=== PATIENT | female | born 1995 | race African-American/Black ===

== ENCOUNTER 2020-06-30 14:07 | Emergency (ER) | payer MEDICAID ==
[~2020-06-30] VITALS: Ht 165.1 cm; Wt 90.7 kg
[~2020-06-30 14:07] MED LIST: AMOX500C2 PO; BENZ56AE TP; CODE-54 PO; DCS100C PO; FRS325T PO; IBP600T1 PO; NAPR-243 PO; PREN1TAB71 PO
[2020-06-30 14:54] LABS: BASOPHILS % (AUTO) 0 % (0-10); EOSINOPHILS # (AUTO) 0.1 10^3/uL (0.0-0.3); EOSINOPHILS % (AUTO) 1 % (0-10); HEMATOCRIT 43 % (35-52); HEMOGLOBIN 14.1 G/DL (11.5-16.0); LYMPHOCYTES # (AUTO) 1.9 X 10^3 (1.0-4.0); LYMPHOCYTES % (AUTO) 22 % (12-44); MEAN CORPUSCULAR HEMOGLOBIN 28 PG (25-34); MEAN CORPUSCULAR HGB CONC 33 G/DL (32-36); MEAN CORPUSCULAR VOLUME 83 FL (80-99); MEAN PLATELET VOLUME 9.8 FL (7.4-10.4); MONOCYTES # (AUTO) 0.9 X 10^3 (0.0-1.0); MONOCYTES % (AUTO) 10 % (0-12); NEUTROPHILS # (AUTO) 5.9 X 10^3 (1.8-7.8); NEUTROPHILS % (AUTO) 67 % (42-75); PLATELET COUNT 265 10^3/uL (130-400); WHITE BLOOD COUNT 8.9 10^3/uL (4.3-11.0)
--- NOTE | 2020-06-30 15:57 | ED GU-Female ---
General Chief Complaint: Female Reproductive Stated Complaint: 10 WKS PREG - VAG BLEEDING Nursing Triage Note: Pt reports brown spotting yesterday. Pt reports heavy bleeding began today. Pt has soaked through two pads in the last hour. Pt reports clots larger than a quarter. Pt reports having an ultrasound last week with no heartbeat. Pt c/o cramping. Nursing Sepsis Screen: No Definite Risk Source: patient Exam Limitations: no limitations History of Present Illness Date Seen by Provider: Jun 30, 2020 Time Seen by Provider: 14:13 Initial Comments This 24-year-old young lady at approximately 10 weeks gestational age presents to the emergency room with complaints of mild cramping and heavy vaginal bleeding. This started last night with some brownish discharge. Has escalated over the last couple of hours. She has gone through 2 pads in the last hour. She denies any significant pain, fever, or other complaints. She reports intrauterine was confirmed at the [facility] on Jun 26. Dr. STAHL is her primary gore seamer. Blood type is A pos. Allergies and Home Medications Allergies Coded Allergies: No Known Drug Allergies (Unverified , 08/29/12) Home Medications Amoxicillin 500 Mg Capsule, 500 MG PO TID Prescribed by: ISRAEL HAMMOND MD on 12/21/15 1128 Patient Home Medication List Home Medication List Reviewed: Yes Review of Systems Review of Systems Constitutional: no symptoms reported EENTM: no symptoms reported Respiratory: no symptoms reported Cardiovascular: no symptoms reported Gastrointestinal: no symptoms reported Genitourinary: see HPI Musculoskeletal: no symptoms reported Skin: no symptoms reported Psychiatric/Neurological: No Symptoms Reported Endocrine: No Symptoms Reported Hematologic/Lymphatic: No Symptoms Reported Past Ewtrada-Xplsvw-Fusfha Hx Past Med/Social Hx: Reviewed Nursing Past Med/Soc Hx Patient Social History Alcohol Use: Denies Use Recreational Drug Use: No 2nd Hand Smoke Exposure: No Recent Foreign Travel: No Contact w/Someone Who Travel: No Recent Infectious Disease Expo: No Physical Abuse: No Sexual Abuse: No Mistreated: No Fear: No Immunizations Up To Date Tetanus Booster (TDap): Unknown PED Vaccines UTD: Yes Date of Influenza Vaccine: Jul 12, 2014 Seasonal Allergies Seasonal Allergies: Yes Past Medical History Surgeries: No Respiratory: No Cardiac: No Neurological: No Reproductive Disorders: No Gastrointestinal: No Musculoskeletal: No Endocrine: No Cancer: No Psychosocial: No Integumentary: Yes (occas eczema hx) Eczema Blood Disorders: No Family Medical History Hypertension 19 FATHER Physical Exam Vital Signs Vital Signs - First Documented 06/30/20 14:26 Temp 36.7 Pulse 69 Resp 20 B/P (MAP) 111/77 (88) Pulse Ox 99 O2 Delivery Room Air Capillary Refill : Less Than 3 Seconds Height, Weight, BMI Height: 5'5.00" Weight: 164lbs. 2.0oz. [id number]; 33.00 BMI Method:Estimated General Appearance: WD/WN, no apparent distress HEENT: PERRL/EOMI, normal ENT inspection Cardiovascular: regular rate, rhythm, no edema, no murmur Respiratory: lungs clear, normal breath sounds, no respiratory distress Gastrointestinal: normal bowel sounds, non tender, soft Extremities: normal inspection, no pedal edema Neurologic/Psychiatric: head of marketing adometry II-XII nml as tested, no motor/sensory deficits, alert, normal mood/affect, oriented x 3 Skin: normal color, warm/dry Progress/Results/Core Measures Suspected Sepsis Recent Fever Within 48 Hours: No Infection Criteria Present: None New/Unexplained Altered Menta: No Sepsis Screen: No Definite Risk SIRS Temperature: Pulse: 69 Respiratory Rate: 20 Laboratory Tests 06/30/20 14:34: White Blood Count 8.9 Blood Pressure 111 /77 Mean: 88 Laboratory Tests 06/30/20 14:34: Platelet Count 265 Results/Orders Lab Results Laboratory Tests Test 06/30/20 14:34 06/30/20 15:45 Range/Units White Blood Count 8.9 4.3-11.0 10^3/uL Red Blood Count 5.11 4.35-5.85 10^6/uL Hemoglobin 14.1 11.5-16.0 G/DL Hematocrit 43 35-52 % Mean Corpuscular Volume 83 80-99 FL Mean Corpuscular Hemoglobin 28 25-34 PG Mean Corpuscular Hemoglobin Concent 33 32-36 G/DL Red Cell Distribution Width 12.7 10.0-14.5 % Platelet Count 265 130-400 10^3/uL Mean Platelet Volume 9.8 7.4-10.4 FL Neutrophils (%) (Auto) 67 42-75 % Lymphocytes (%) (Auto) 22 12-44 % Monocytes (%) (Auto) 10 0-12 % Eosinophils (%) (Auto) 1 0-10 % Basophils (%) (Auto) 0 0-10 % Neutrophils # (Auto) 5.9 1.8-7.8 X 10^3 Lymphocytes # (Auto) 1.9 1.0-4.0 X 10^3 Monocytes # (Auto) 0.9 0.0-1.0 X 10^3 Eosinophils # (Auto) 0.1 0.0-0.3 10^3/uL Basophils # (Auto) 0.0 0.0-0.1 10^3/uL Human Chorionic Gonadotropin, Quant 12038 H <5 MIU/ML Urine Color YELLOW Urine Clarity CLOUDY Urine pH 8.0 5-9 Urine Specific [place] 1.015 L 1.016-1.022 Urine Protein TRACE H NEGATIVE Urine Glucose (UA) NEGATIVE NEGATIVE Urine Ketones TRACE H NEGATIVE Urine Nitrite NEGATIVE NEGATIVE Urine Bilirubin NEGATIVE NEGATIVE Urine Urobilinogen 2.0 < = 1.0 MG/DL Urine Leukocyte Esterase NEGATIVE NEGATIVE Urine RBC (Auto) 3+ H NEGATIVE Urine RBC 50-100 H /HPF Urine WBC 10-25 H /HPF Urine Squamous Epithelial Cells 2-5 /HPF Urine Crystals NONE /LPF Urine Amorphous Sediment MOD BREANNA PHOSPHATE H /LPF Urine Bacteria FEW H /HPF Urine Casts NONE /LPF Urine Mucus NEGATIVE /LPF Urine Culture Indicated YES My Orders Orders - FLORENTINO LEMUS MD Cbc With Automated Diff (06/30/20 14:13) Hcg,Quantitative (06/30/20 14:13) Ua Culture If Indicated (06/30/20 14:13) Urine Culture (06/30/20 15:45) Vital Signs/I&O 06/30/20 06/30/20 14:26 16:17 Temp 36.7 36.7 Pulse 69 65 Resp 20 20 B/P (MAP) 111/77 (88) 114/71 (88) Pulse Ox 99 99 O2 Delivery Room Air Room Air Capillary Refill : Less Than 3 Seconds Blood Pressure Mean: 88 Progress Note : Progress Note Patient's blood type was a positive and she did not require RhoGAM. UA demonstrated WBCs and few bacteria which are likely contaminant due to the heavy bleeding. There is no leukocyte esterase. She likely does not have urinary tract infection. Treatment can be deferred until culture results. HCG level was still fairly high. Patient may still have a viable . She was informed that this is a threatened miscarriage but not a confirmed miscarriage. She is to follow-up with Dr. STAHL first thing on Thursday. Return precautions were discussed. Departure Impression Primary Impression: Threatened in first trimester Additional Impression: Bleeding in early Disposition: 01 HOME, SELF-CARE Condition: Stable Departure-Patient Inst. Decision time for Depature: 16:10 Referrals: [facility] (PCP/Family) Primary Care Physician Patient Instructions: Threatened Miscarriage, Bleeding With (DC) Add. Discharge Instructions: Observe pelvic rest until cleared by your gore seamer. You may take Tylenol (acetaminophen) up to 1000 mg every 6 hours as needed for pain. Return to the emergency room if you have worsening symptoms such as uncontrolled bleeding, escalating pain, shortness of breath, lightheadedness, fever, etc. Call Dr. STAHL first thing on Thursday to arrange follow-up. All discharge instructions reviewed with patient and/or family. Voiced understanding. Copy Copies To 1: MARLON STAHL JOSHUA T MD Jun 30, 2020 15:57
[2020-06-30 16:00] LABS: BILIRUBIN,URINE NEGATIVE (NEGATIVE); CLARITY,URINE CLOUDY; COLOR,URINE YELLOW; GLUCOSE, URINE (UA) NEGATIVE (NEGATIVE); KETONES,URINE TRACE (NEGATIVE); LEUKOCYTE ESTERASE ,URINE NEGATIVE (NEGATIVE); NITRITE,URINE NEGATIVE (NEGATIVE); PROTEIN,URINE TRACE (NEGATIVE)
[2020-06-30 16:08] LABS: BACTERIA,URINE FEW /HPF; RBC,URINE 50-100 /HPF
[2020-06-30 16:09] LABS: AMORPHOUS SEDIMENT,UR MOD AMOR PHOSPHATE /LPF
[2020-06-30 16:17] VITALS: BP 114/71
== END 2020-06-30 16:17 | disposition home or self-care (01) ==
LOC: EDUNIT# 14:07 → ER 14:09
DX: O20.9 Hemorrhage in early pregnancy, unspecified (principal); O20.0 Threatened abortion; Z3A.10 10 weeks gestation of pregnancy; Z82.49 Family history of ischemic heart disease and other diseases of the circulatory system
CPT/HCPCS: 36415; 81000; 84702; 85025; 87088; 99282

== ENCOUNTER → 2020-11-27 | Outpatient (CLI) | payer MEDICAID ==
--- NOTE | 2020-11-27 13:52 | Diagnostic Imaging Report ---
INDICATION: survey. TECHNIQUE: Multiple real-time grayscale images were obtained over the gravid uterus. COMPARISON: None FINDINGS: There are no prior studies available for comparison. There is a single live fetus in cephalic presentation. heart motion was noted and a rate of 147 BPM was recorded. There were no abnormalities identified but the intracranial contents were not well-visualized due to lie. It may prove worthwhile if there were short-term (4-6 week) follow-up exam for further evaluation of the brain. The placenta is anterior and fundal and there is no previa. The amniotic fluid volume is within normal limits. The growth parameters are fairly uniform. The cervix was identified and measures 3.9 cm in length. Biometrical measurements are as follows: Biparietal 4.50 cm, age 19 weeks 5 days. Head circumference 18.33 cm, age 20 weeks 5 days. Abdominal circumference 14.76 cm, age 20 weeks 1 days. Femur length 3.45 cm, age 21 weeks 0 days. Sonographic estimate age: 20 weeks 3 days. Sonographic estimated date of delivery: 04/12/2021. Estimated Weight: 352 gm (+/- 52 gm). LMP percentile: 37%. heart rate: 147 beats per minute. number: 1 of 1. IMPRESSION: 1. There is a single live fetus of approximately 20 weeks 3 days gestation +/- 1.5 weeks. The EDC is 04/13/2021. 2. There were no abnormalities identified. However the intracranial structures were not optimally visualized. Recommendations as above. 3. The growth parameters are fairly uniform. Dictated by: Dictated on workstation # [id number]
== END ==
LOC: RAD 12:30
PROVIDERS: ATTEND Nurse Practitioner Women's Health
DX: Z34.02 Encounter for supervision of normal first pregnancy, second trimester (principal); Z3A.20 20 weeks gestation of pregnancy
CPT/HCPCS: 76805

== ENCOUNTER 2021-03-06 17:54 | Outpatient (CLI) | payer MEDICAID ==
[~2021-03-06] VITALS: Ht 165.1 cm; Wt 102.0 kg
[2021-03-06 18:21] VITALS: BP 120/73
[2021-03-06 19:16] VITALS: BP 120/73
--- NOTE | 2021-03-07 08:56 | Physician Query-Final Dx ---
Clinic Account Progress/Dx Physician Query: Please give diagnosis Please include # weeks gestation Date of Service March 06, 2021 at 17:54 SKYLA HUNT March 07, 2021 08:56
[2021-03-13] MEDS ORDERED: OXYC1TAB87 PO (14:15)
[2021-03-13] MEDS ORDERED: IBUP-1780 PO (14:15)
[2021-03-13] MEDS ORDERED: DOCU-143 PO (14:15)
== END 2021-03-06 19:26 | disposition home or self-care (01) ==
LOC: LDRP 17:54 → WSo 17:54
PROVIDERS: ATTEND Obstetrics & Gynecology
DX: O26.899 Other specified pregnancy related conditions, unspecified trimester (principal); Z3A.00 Weeks of gestation of pregnancy not specified
CPT/HCPCS: 99213

== ENCOUNTER 2021-03-13 08:48 | Inpatient (IN) | payer MEDICAID ==
[2021-03-13] VITALS (37 sets, daily range): BP systolic 103–145; BP diastolic 60–94
[~2021-03-13] VITALS: Ht 165.1 cm; Wt 102.1 kg
[2021-03-13] MEDS ORDERED: D5 LR IV SOLUTION 1,000 ML IV SCH (10:00)
[2021-03-13] MEDS ORDERED: WATER (STERILE) FOR INJECTION 20 ML ONE (10:10)
[2021-03-13] MEDS ORDERED: AMPICILLIN 2,000 MG/14.8 ML (IV USE) ONE (10:10)
[2021-03-13] MEDS ORDERED: AMPICILLIN FOR IV USE 2,000 MG in WATER (STERILE) FOR INJECTION 14.8 ML IV SCH (10:12)
[2021-03-13 10:13] LABS: BASOPHILS % (AUTO) 1 % (0-10); EOSINOPHILS # (AUTO) 0.1 10^3/uL (0.0-0.3); EOSINOPHILS % (AUTO) 1 % (0-10); HEMATOCRIT 44 % (35-52); HEMOGLOBIN 14.3 g/dL (11.5-16.0); LYMPHOCYTES # (AUTO) 1.3 10^3/uL (1.0-4.0); LYMPHOCYTES % (AUTO) 18 % (12-44); MEAN CORPUSCULAR HEMOGLOBIN 27 pg (25-34); MEAN CORPUSCULAR HGB CONC 33 g/dL (32-36); MEAN CORPUSCULAR VOLUME 83 fL (80-99); MEAN PLATELET VOLUME 10.9 fL (9.0-12.2); MONOCYTES # (AUTO) 0.7 10^3/uL (0.0-1.0); MONOCYTES % (AUTO) 10 % (0-12); NEUTROPHILS # (AUTO) 5.1 10^3/uL (1.8-7.8); NEUTROPHILS % (AUTO) 70 % (42-75); PLATELET COUNT 224 10^3/uL (130-400); WHITE BLOOD COUNT 7.3 10^3/uL (4.3-11.0)
[2021-03-13] MEDS ORDERED: OXYTOCIN PRE-MIX DRIP 500 ML IV SCH ×2 (10:15→17:00)
[2021-03-13] MEDS ORDERED: fentaNYL 2 mcg/ml BUPIVA 0.125 100 ML ONE (11:29)
[2021-03-13] MEDS ORDERED: fentaNYL INJ 100 MCG/2 ML AMP ONE (12:09)
[2021-03-13] MEDS ORDERED: BUPIVACAINE 0.25% 30 ML (SENSORCAINE) VIAL ONE (12:09)
[2021-03-13] MEDS ORDERED: ONDANSETRON 4 MG/2 ML (SDV) Z0FRAN IV PRN (12:15)
[2021-03-13] MEDS ORDERED: NALOXONE 0.4 MG/ML 1 ML (NARCAN) VIAL IV PRN (12:15)
[2021-03-13] MEDS ORDERED: diphenhydrAMINE 50 MG/ML INJ (BENADRYL) IV PRN (12:15)
[2021-03-13] MEDS ORDERED: fentaNYL 2 mcg/ml BUPIVA 0.125 100 ML IV SCH (12:15)
[2021-03-13] MEDS ORDERED: CATHETER FLUSH 10 ML SYR IV PRN (12:15)
[2021-03-13] MEDS ORDERED: LACTATED RINGERS 1,000 ML IV ONE (12:15)
[2021-03-13] MEDS ORDERED: CATHETER FLUSH 10 ML SYR IV SCH (14:00)
--- NOTE | 2021-03-13 14:12 | History & Physical ---
History and Physical Date Seen by Provider: Mar 13, 2021 Time Seen by Provider: 14:09 This patient is a 25-year-old 3 para [address] Sands for whom I am covering. She presented at 35+ weeks gestation with complaint of r upture membranes. She was eventually noted to be grossly ruptured. She was 3 cm dilated on admission and guillaume with some regularity. GBS culture was not available as it had not been done. Patient has had no other problems with this Allergies are none Medications are vitaminsLaboratory Tests 03/13/21 09:55 Medical surgical and social history is all per the antepartum record HEENT exam is normal Neck is supple no lymphadenopathy no thyromegaly Abdomen is gravid soft nontender nondistended Extremities show no clubbing or cyanosis. There is no Homans' sign. Pelvic exam per the nurse now shows a cervix is centimeters dilated about 100% effaced 0 station vertex presentation with gross rupture membranes. monitor showed contractions initially about 2 to 3 minutes apart now 5 to 6 minutes apart. heart rate pattern is normal Assessment and plan labor with P PROM. Patient is on ampicillin for GBS prophylaxis. As her contractions are spaced out we will augment with Pitocin to facilitate delivery. We anticipate a vaginal delivery 35 weeks with P PROM Allergies and Home Medications Allergies Coded Allergies: No Known Drug Allergies (Unverified , 08/29/12) Home Medications No Active Prescriptions or Reported Meds Patient Home Medication List Home Medication List Reviewed: Yes PUNEET LUTZ MD Mar 13, 2021 14:11
[2021-03-13] MEDS ORDERED: AMPICILLIN FOR IV USE 1,000 MG in WATER (STERILE) FOR INJECTION 7.4 ML IV SCH (14:15)
[2021-03-13] MEDS ORDERED: DOCU-143 PO (14:15)
[2021-03-13] MEDS ORDERED: OXYC1TAB87 PO (14:15)
[2021-03-13] MEDS ORDERED: IBUP-1780 PO (14:15)
--- NOTE | 2021-03-13 14:15 | Discharge Inst-Surgical ---
Discharge Inst-Surgical Depart Medication/Instructions New, Converted or Re-Newed RX: RX on Chart Consults/Follow Up Patient Instructions: As directed Orders & Referrals Follow Up Appt: Call to make follow up appt. for patient in [address] Sands. Activity Per routine post vaginal delivery instructions. Please call in RX to patient pharmacy. Diet as tolerated Patient may shower or tub bathe as desired. Activity Activity as Tolerated: No Diet Discharge Diet: No Restrictions PUNEET LUTZ MD Mar 13, 2021 14:15
[2021-03-13] MEDS ORDERED: MEASLES,MUMPS,RUBELLA 1 EA INJ SC ONE (17:00)
[2021-03-13] MEDS ORDERED: oxyCODONE/APAP 5/325MG (PERCOCET 5) TABLET PO PRN (17:00)
[2021-03-13] MEDS ORDERED: TETANUS,DIPTH,PERTUSS P/F (BOOSTRIX) 0.5 ML VIAL IM ONE (17:00)
[2021-03-13] MEDS ORDERED: ONDANSETRON 4 MG/2 ML (SDV) Z0FRAN IVP PRN (17:00)
[2021-03-13] MEDS ORDERED: KETOROLAC 30 MG/ML VIAL ONE (17:29)
[2021-03-13] MEDS: KETOROLAC 30 MG/ML VIAL IVP SCH ×2 (17:42→23:46)
[2021-03-13 17:50] LABS: AMPHETAMINE SCREEN, URINE NEGATIVE (NEGATIVE); BARBITURATE SCREEN URINE NEGATIVE (NEGATIVE); BENZODIAZEPINES SCREEN URINE NEGATIVE (NEGATIVE); CANNABINOID SCREEN, URINE NEGATIVE (NEGATIVE); COCAINE SCREEN URINE NEGATIVE (NEGATIVE); METHADONE STAT NEGATIVE (NEGATIVE); METHAMPHETAMINE SCREEN URINE S NEGATIVE (NEGATIVE); OPIATE SCREEN URINE NEGATIVE (NEGATIVE); OXYCODONE STAT NEGATIVE (NEGATIVE); PROPOXYPHENE STAT NEGATIVE (NEGATIVE); TRICYCLIC ANTIDEPRESSANTS SCRE NEGATIVE (NEGATIVE)
[2021-03-13] MEDS: BENZOCAINE/MENTHOL (DERMOPLAST) 56 ML CAN TP PRN (21:13)
[2021-03-13] MEDS: DOCUSATE SODIUM 100 MG (COLACE) CAP PO SCH (22:17)
--- NOTE | 2021-03-13 23:03 | OPERATIVE REPORT ---
DATE OF SERVICE: 03/13/2021 DELIVERY NOTE The patient delivered at 35+ plus weeks gestation a viable male with Apgars that are pending, weight of 3 pounds 15 ounces. time of 1636 and a cord blood pH that is pending. Infant was delivered over an intact perineum under epidural analgesia. The infant was bulb suctioned on delivery of the head and again on completion of delivery. Umbilical cord was doubly clamped, father cut the cord, the baby was taken fairly promptly to the warmer secondary to the prematurity and small size of the baby. Cord bloods were obtained. The placenta delivered spontaneously Zendejas. It was very small placenta with a 3-vessel cord. It did have some firm nodule in the midst of the placental bed. Placenta was sent to pathology for permanent section. The cervix, vagina, rectum, and perineum were examined and found intact. Blood loss for delivery was around 100 mL. The patient tolerated the delivery well and remained in the LDR. The baby was taken to the full term nursery under the care of the pediatric nurse. Job ID: [id number] DocumentID: [id number] Dictated Date: 03/13/2021 16:54:07 Major Donor Coordinator Date: 03/13/2021 23:01:31 Dictated By: PUNEET LUTZ MD MTDD
[2021-03-14 03:10] VITALS: BP 111/55
[2021-03-14] MEDS: BENZOCAINE/MENTHOL (DERMOPLAST) 56 ML CAN TP PRN (03:17)
[2021-03-14] MEDS ORDERED: KETOROLAC 30 MG/ML VIAL IVP SCH (06:00)
[2021-03-14 06:17] VITALS: BP 112/61
[2021-03-14] MEDS: KETOROLAC 30 MG/ML VIAL IVP SCH (06:19)
--- NOTE | 2021-03-14 09:04 | Progress Note ---
Standard Progress Note Progress Notes/Assess & Plan Date Seen by a Provider: Mar 14, 2021 Time Seen by a Provider: 09:02 Progress/Assessment & Plan This patient is without complaint. She is ambulating, voiding, tolerating oral intake well and has good pain control. Patient is considering discharge home as her baby was transferred to [facility] Vital Signs Date Time Temp Pulse Resp B/P (MAP) Pulse Ox O2 Delivery O2 Flow Rate FiO2 03/14/21 06:17 36.9 58 18 112/61 (78) 98 Room Air 03/14/21 03:10 36.7 72 18 111/55 (73) 98 Room Air 03/13/21 22:46 36.4 64 18 117/66 (83) 97 Room Air 03/13/21 18:30 57 18 123/60 (81) Room Air 03/13/21 18:20 36.6 03/13/21 18:00 61 18 120/69 (86) Room Air 03/13/21 17:45 36.7 53 18 128/69 (88) Room Air 03/13/21 17:30 52 18 127/74 (91) Room Air 03/13/21 17:15 63 18 125/74 (91) Room Air 03/13/21 17:00 36.5 60 18 127/73 (91) Room Air 03/13/21 16:50 36.9 72 18 132/91 (105) Room Air 03/13/21 16:36 36.7 100 Room Air 03/13/21 16:30 76 18 133/91 (105) 100 Room Air 03/13/21 16:15 58 18 132/78 (96) 100 Room Air 03/13/21 16:00 57 18 121/70 (87) 99 Room Air 03/13/21 15:45 54 18 117/68 (84) 100 Room Air 03/13/21 15:30 36.2 57 18 116/68 (84) 100 Room Air 03/13/21 15:15 59 18 114/67 (83) 100 Room Air 03/13/21 15:00 65 18 145/84 (104) 100 Room Air 03/13/21 14:45 60 18 117/71 (86) 99 Room Air 03/13/21 14:30 56 18 110/66 (81) 100 Room Air 03/13/21 14:15 54 18 112/60 (77) 100 Room Air 03/13/21 14:00 68 18 121/72 (88) 99 Room Air 03/13/21 13:45 61 18 119/60 (79) 100 Room Air 03/13/21 13:30 36.9 60 18 103/60 (74) 100 Room Air 03/13/21 13:15 60 18 113/65 (81) 98 Room Air 03/13/21 13:00 73 18 105/66 (79) 99 Room Air 03/13/21 12:41 70 18 111/65 (80) 99 Room Air 03/13/21 12:35 77 18 123/81 (95) 100 Room Air 03/13/21 12:34 71 18 118/77 (91) 100 Room Air 03/13/21 12:33 69 18 111/67 (82) Room Air 03/13/21 12:30 37.1 60 18 123/79 (94) Room Air 03/13/21 12:25 63 18 123/79 (94) 100 Room Air 03/13/21 12:21 63 18 124/66 (85) 100 Room Air 03/13/21 12:18 63 18 142/68 (92) 99 Room Air 03/13/21 12:00 60 18 132/94 (107) Room Air 03/13/21 11:30 60 18 123/84 (97) Room Air 03/13/21 11:00 61 18 123/84 (97) Room Air 03/13/21 10:30 36.7 53 18 132/84 (100) Room Air 03/13/21 09:11 36.6 78 18 98 Room Air 03/13/21 09:05 36.6 75 18 98 Room Air I & O 03/14/21 07:00 Intake Total 1523 ml Balance 1523 ml Vital signs are stable. Patient is afebrile. Fundus is firm below the umbilicus and nontender. Extremities show no clubbing or cyanosis. There is no Homans' sign. Assessment and plan day #1 status post spontaneous vaginal labor at 35 weeks gestation. Patient is doing well and will allow discharge home at her request Final Diagnosis 35-week spontaneous vaginal PUNEET LUTZ MD Mar 14, 2021 09:03
--- NOTE | 2021-03-14 09:17 | Anesthesia-Regional Post-Op ---
Regional Patient Condition Mental Status: Alert, Oriented x3 Circulation: Same as Pre-Op Headache: Absent Sensation: Full Recovery Motor Block: Absent Post Op Complications Complications None Follow Up Care/Instructions Patient Instructions None needed. Anesthesia/Patient Condition Patient is doing well, no complaints, stable vital signs, no apparent adverse anesthesia problems. No complications reported per nursing. JIMENA DICKERSON CRNA Mar 14, 2021 09:17
[2021-03-14 09:53] VITALS: BP 117/81
[2021-03-14] MEDS: DOCUSATE SODIUM 100 MG (COLACE) CAP PO SCH (09:55)
[2021-03-14] MEDS ORDERED: IBUPROFEN 800 MG (MOTRIN) TAB PO SCH ×2 (11:00→12:00)
== END 2021-03-14 11:45 | disposition home or self-care (01) | DRG 807 ==
LOC: WSo 08:48 → LDRP 08:50 → WSo 09:56 → LDRP 21:20
PROVIDERS: ADMIT Obstetrics & Gynecology; ATTEND Obstetrics & Gynecology
PROC: 10E0XZZ Delivery of Products of Conception, External Approach (ICD-10-PCS; principal; 2021-03-13)
DX: O42.913 Preterm premature rupture of membranes, unspecified as to length of time between rupture and onset of labor, third trimester (principal); Z37.0 Single live birth; Z3A.35 35 weeks gestation of pregnancy
CPT/HCPCS: 36415; 80306; 85025; 86780; 86850; 86900; 86901